=== PATIENT | female | born 1995 | race Caucasian/White ===

== ENCOUNTER 2021-10-02 20:33 | Emergency (ER) | payer OTHER ==
--- NOTE | 2021-10-02 20:50 | ED Physician Documentation ---
PD HPI FEMALE - Stated complaint Stated Complaint: FEMALE - Chief complaint Chief Complaint: Abd Pain - History obtained from History obtained from: Patient - History of Present Illness Timing - onset: Enter time (13:00), Today Timing - details: Abrupt onset Associated symptoms: Pelvic pain, Vaginal discharge. No: Fever Contributing factors: Oral contraceptive. No: Recently seen: Not recently seen - Additional information Additional information: patient had intercourse today at approximately 1:00 PM; within 5-10 minutes, she developed vaginal bleeding and pelvic cramping across anterior pelvis. The bleeding was red and she describes small amount, but decreasing in amount and had just spotting by the time of this eval which she says is more brown colored. She also says she urinated post-coitus and believes she saw "tissue" (per patient) in the urine. LMP was 2 weeks ago. Denies h/o similar symptoms Review of Systems Constitutional: denies: Fever GI: denies: Abdominal Pain, Nausea, Vomiting : reports: LMP (2 weeks ago), Control. denies: Dysuria, Frequency, Now EGA PD PAST MEDICAL HISTORY - Past Medical History Past Medical History: No - Present Medications Home Medications: Ambulatory Orders Medication Instructions Recorded Confirmed HYDROcod/ACETAM 5/325 [[place] 5/325] 1 - 2 tab PO Q6H PRN #10 tablet 10/03/21 - Allergies Allergies/Adverse Reactions: Allergies Allergy/AdvReac Type Severity Reaction Status Date / Time No Known Drug Allergies Allergy Verified 10/03/21 14:08 PD ED PE NORMAL - Vitals Vital signs reviewed: Yes - General General: Alert and oriented X 3, No acute distress, Well developed/nourished - Abdomen Abdomen: Soft, Non tender, Other (minimal TTP across anterior hemipelvis without guarding or rebound) - Back Back: No CVA TTP PD ED PE EXPANDED - Female Female : Normal external, Normal exam, Residential Substance Abuse Counselor present (crane service technician Shilpi Estrada), Other (scant brown mucoid material in posterior vagina). No: Skin lesions, Vaginal Bleeding, Vaginal Discharge, CMT, Dilated cervix, Tissue present Results - Vitals Vitals: Oxygen O2 Source Room air - Labs Labs: Laboratory Tests 10/02/21 10/02/21 20:18 20:18 Urine Color YELLOW Urine Clarity HAZY Urine pH 5.5 Ur Specific [place] >=1.030 H Urine Protein NEGATIVE Urine Glucose (UA) NEGATIVE Urine Ketones NEGATIVE Urine Occult Blood MODERATE H Urine Nitrite NEGATIVE Urine Bilirubin NEGATIVE Urine Urobilinogen 0.2 (NORMAL) Ur Leukocyte Esterase NEGATIVE Urine RBC 0-5 Urine WBC 0-3 Ur Squamous Epith Cells FEW Squamous Urine Bacteria Many H Ur Microscopic Review INDICATED Urine Culture Comments NOT INDICATED Urine HCG, Qual NEGATIVE PD MEDICAL DECISION MAKING - ED course Complexity details: reviewed results, re-evaluated patient, considered differential, d/w patient ED course: presents with vaginal bleeding which has attenuated and only spotting by the time of this evaluation, with mild anterior pelvic cramping. onset was this afternoon shortly after having intercourse. Unremarkable exam including abdominal exam, back (no CVAT) exam, and pelvic exam. HCG negative and UA only positive for blood on macro; bacteria on micro will reflex to culture, but HPI i s not s/o UTI so will wait for culture rather than empirically rx abx. Departure - Departure Disposition: 01 Home, Self Care Clinical Impression: Pelvic pain in female Condition: Good Instructions: ED Pelvic Pain [facility] Follow-Up: LAURA DIAZ MD [Primary Care Provider] - Within 3 Days Comments: The cause of your symptoms is unclear at this time. There was no evidence of any tears/lacerations, nor active bleeding on the exam. I did not see any apparent source of bleeding, either. Your urinalysis had blood in it but no evidence of infection at this time although a culture will be performed and if the result is positive for infection, you will receive a call within 2 days regarding this result (only if it is positive for infection; as we discussed, this seems an unlikely cause of your symptoms). Please return if symptoms worsen, follow up with your primary care provider by the end of this week for reevaluation Discharge Date/Time: 10/02/21 22:30
[2021-10-02 21:03] LABS: BILIRUBIN,URINE NEGATIVE (NEGATIVE); GLUCOSE, URINE (UA) NEGATIVE (NEGATIVE); KETONES,URINE (UA) NEGATIVE (NEGATIVE); LEUKOCYTE ESTERASE, URINE NEGATIVE (NEGATIVE); NITRITE,URINE NEGATIVE (NEGATIVE); OCCULT BLOOD,URINE MODERATE (NEGATIVE); PH,URINE 5.5 PH (5.0-7.5); PROTEIN,URINE NEGATIVE (NEGATIVE); UROBILINOGEN,URINE 0.2 (NORMAL) E.U./dL (NORMAL)
[2021-10-02 21:09] LABS: CLARITY,URINE HAZY (CLEAR)
[2021-10-02 21:11] LABS: HCG UR QUAL NEGATIVE
[2021-10-02 21:22] LABS: BACTERIA,URINE Many /HPF (None Seen); RBC,URINE 0-5 /HPF (0-5); SQUAMOUS EPITHELIAL CELL,UR FEW Squamous (<= Few); WBC,URINE 0-3 /HPF (0-5)
[2021-10-02] MEDS ORDERED: IBUPROFEN 600 MG TABLET PO STA (22:20)
[2021-10-02 22:28] VITALS: BP 110/61
== END 2021-10-02 22:30 | disposition home or self-care (01) ==
LOC: ED 20:33
DX: R10.2 Pelvic and perineal pain (principal); N89.8 Other specified noninflammatory disorders of vagina
CPT/HCPCS: 81001; 81025; 99282; 99283; A9270; 81003; 87086

== ENCOUNTER 2021-10-03 13:53 | Emergency (ER) | payer OTHER ==
--- NOTE | 2021-10-03 16:02 | Ultrasound Report ---
PROCEDURE: Pelvic w/Transvag+Doppler Comp INDICATIONS: pelvic pain TECHNIQUE: Real-time scanning was performed of the pelvic organs, with image documentation. Additional endovagi nal scanning was necessary due to incomplete visualization of the adnexal and endometrial structures by transabdominal scanning. Doppler interrogation was performed of the ovaries bilaterally. COMPARISON: None. FINDINGS: No pathologic free abdominal or pelvic fluid. Uterus: Anteverted uterus measures 9.9 x 2.7 x 3.9 cm. No discrete uterine fibroid is seen. The endom etrium measures 1.5 mm in combined thickness. There is no endometrial mass or fluid. Ovaries: Right ovary measures 2.8 x 1.8 x 1.6 cm in size with a volume of 4.3 cc. Left ovary measures 3 x 1.7 x 1.5 cm in size with a volume of 4 cc. No solid appearing ovarian lesion. Normal blood flow is seen in bilateral ovaries on color Doppler images. Other: Small amount of free fluid is seen in posterior cul-de-sac. IMPRESSION: Unremarkable ultrasound examination of uterus and bilateral ovaries. Small amount of pel michael free fluid likely represent physiologic fluid for patient age. Reviewed by: Alverto Maciel MD on 10/03/2021 4:00 PM PDT Approved by: Alverto Maciel MD on 10/03/2021 4:00 PM PDT Station ID: [id number]
[2021-10-03] MEDS ORDERED: KETOROLAC 60 MG/2 ML VIAL IM STA (16:32)
[2021-10-03 16:35] VITALS: BP 120/86
--- NOTE | 2021-10-03 16:36 | ED Physician Documentation ---
PD HPI ABD PAIN - Stated complaint Stated Complaint: PELVIC PX - Chief complaint Chief Complaint: Abd Pain - History obtained from History obtained from: Patient - Additional information Additional information: 26-year-old woman about 2 weeks out from her last menses presents for reevaluation for pelvic pain. She was seen last night by my partner Dr. Garcia, note there was no ultrasound available overnight. Pelvic exam was done and documented as having scant brown mucoid material in the posterior vagina but otherwise unremarkable without cervical motion tenderness. She represents today with continued pelvic pain not lateralizing for an ultrasound and needing something for pain. test was negative last night. Review of Systems Constitutional: denies: Fever, Chills Cardiac: denies: Chest pain / pressure, Palpitations Respiratory: denies: Dyspnea, Cough PD PAST MEDICAL HISTORY - Past Surgical History Past Surgical History: No - Present Medications Home Medications: Ambulatory Orders Medication Instructions Recorded Confirmed HYDROcod/ACETAM 5/325 [[place] 5/325] 1 - 2 tab PO Q6H PRN #10 tablet 10/03/21 - Allergies Allergies/Adverse Reactions: Allergies Allergy/AdvReac Type Severity Reaction Status Date / Time No Known Drug Allergies Allergy Verified 10/03/21 14:08 - Social History Does the pt smoke?: No Smoking Status: Never smoker Does the pt drink ETOH?: No Does the pt have substance abuse?: No - Immunizations Immunizations are current?: Yes PD ED PE NORMAL - Vitals Vital signs reviewed: Yes - General General: Alert and oriented X 3, No acute distress - Abdomen Abdomen: Normal bowel sounds, Soft, Non tender - Neuro Neuro: Alert and oriented X 3, Normal speech Results - Vitals Vitals: Vital Signs - 24 hr 10/03/21 14:03 Temperature 36.4 C L Heart Rate 65 Respiratory 14 Rate Blood Pressure 120/87 H O2 Saturation 100 Oxygen O2 Source Room air - Rads (name of study) pelvic sono Radiology: EMP read contemporaneously (.) PD MEDICAL DECISION MAKING - ED course ED course: Midcycle pelvic pain, ultrasound showing small free fluid. My suspicion is this is mittelschmerz or potentially ruptured ovarian cyst Departure - Departure Disposition: 01 Home, Self Care Clinical Impression: Pelvic pain in female Condition: Good Record reviewed to determine appropriate education?: Yes Instructions: ED Pelvic Pain [facility] Prescriptions: HYDROcod/ACETAM 5/325 [[place] 5/325] 1 - 2 tab PO Q6H PRN #10 tablet PRN Reason: Pain Comments: I sent your prescription electronically to the [facility]. Return for new or worsening symptoms. Suspect pain will be gone in the next few days, return if worse Follow-up with your doctor if not better by Saturday or so. Forms: Activity restrictions
== END 2021-10-03 16:52 | disposition home or self-care (01) ==
LOC: ED 13:53
DX: R10.2 Pelvic and perineal pain (principal)
CPT/HCPCS: 93975; 96372; 99282; 99284

== ENCOUNTER 2022-06-18 08:56 | Outpatient (CLI) | payer OTHER | END 2022-06-18 08:57 | disposition home or self-care (01) | LOC: LAB 08:56 | PROVIDERS: ATTEND Obstetrics & Gynecology | DX: Z32.01 Encounter for pregnancy test, result positive (principal) | CPT/HCPCS: 36415; 84702 ==